=== PATIENT | female | born 2000 | race Caucasian/White ===

== ENCOUNTER → 2021-02-07 17:42 | Outpatient (CLI) | payer OTHER, MEDICAID, SELFPAY ==
[2021-02-07 18:10] LABS: COVID19 -Nasal RAPID Negative (Negative)
== END ==
PROVIDERS: Referring Provider Nurse Practitioner Family; Visit Provider Nurse Practitioner Family
DX: R05 Cough (principal); J02.9 Acute pharyngitis, unspecified; Z20.822 Contact with and (suspected) exposure to COVID-19
CPT/HCPCS: 87635